=== PATIENT | male | born 2000 | race African-American/Black ===

== ENCOUNTER 2019-12-10 06:21 | Emergency (ER) | payer OTHER ==
[~2019-12-10] VITALS: Ht 165.1 cm; Wt 78.6 kg
[2019-12-10 06:22] VITALS: BP 132/81
[2019-12-10] MEDS ORDERED: TETRACAINE 0.5% OPHTH SOLN 4ML OU ONE (06:45)
[2019-12-10] MEDS ORDERED: FLUORESCEIN OPHTH 1 MG STRIP OU ONE (06:45)
[2019-12-10] MEDS ORDERED: PREDOPD OD (07:05)
== END 2019-12-10 07:13 | disposition home or self-care (01) ==
LOC: M ED 06:21
DX: H20.012 Primary iridocyclitis, left eye (principal)

== ENCOUNTER 2020-08-03 14:48 | Emergency (ER) | payer OTHER ==
[~2020-08-03] VITALS: Ht 165.1 cm; Wt 72.7 kg
[~2020-08-03 14:48] MED LIST: PREDOPD OD
[2020-08-03] MEDS ORDERED: TETRACAINE 0.5% OPHTH SOLN 4ML OU ONE (16:45)
[2020-08-03] MEDS ORDERED: FLUORESCEIN OPHTH 1 MG STRIP OU ONE (16:45)
[2020-08-03] MEDS ORDERED: OFLO3OPSO OU (17:03)
[2020-08-03] MEDS ORDERED: PREDOPD OU (17:03)
[2020-08-03] MEDS ORDERED: TRIA1CR80 TOP (17:31)
[2020-08-03 17:37] VITALS: BP 170/72
== END 2020-08-03 17:39 | disposition home or self-care (01) ==
LOC: M ED 14:48
DX: H10.33 Unspecified acute conjunctivitis, bilateral (principal); H20.9 Unspecified iridocyclitis

== ENCOUNTER 2020-08-26 11:34 | Emergency (ER) | payer OTHER ==
[~2020-08-26] VITALS: Ht 165.1 cm; Wt 73.8 kg
[~2020-08-26 11:34] MED LIST changes: +OFLO3OPSO OU; +PREDOPD OU; +TRIA1CR80 TOP
[2020-08-26] MEDS ORDERED: GNP1CRE5 TOP (12:47)
[2020-08-26 13:01] VITALS: BP 120/72
== END 2020-08-26 13:12 | disposition home or self-care (01) ==
LOC: M ED 11:34
DX: B36.0 Pityriasis versicolor (principal)

== ENCOUNTER 2021-05-10 10:28 | Emergency (ER) | payer OTHER ==
[~2021-05-10] VITALS: Ht 165.1 cm; Wt 72.1 kg
[~2021-05-10 10:28] MED LIST changes: +GNP1CRE5 TOP
[2021-05-10] MEDS ORDERED: PRED20TA PO (11:51)
[2021-05-10 12:06] VITALS: BP 130/80
== END 2021-05-10 12:09 | disposition home or self-care (01) ==
LOC: M ED 10:28
DX: T21.02XA Burn of unspecified degree of abdominal wall, initial encounter (principal); T31.0 Burns involving less than 10% of body surface; Y92.9 Unspecified place or not applicable; Y93.E8 Activity, other personal hygiene

== ENCOUNTER 2021-07-27 08:51 | Emergency (ER) | payer OTHER ==
[~2021-07-27] VITALS: Ht 165.1 cm; Wt 73.0 kg
[~2021-07-27 08:51] MED LIST changes: +PRED20TA PO
[2021-07-27] MEDS ORDERED: NS 1,000 ML IV ONE (09:35)
[2021-07-27] MEDS ORDERED: ONDANSETRON 4MG/2ML VIAL IV ONE (09:35)
[2021-07-27 10:06] LABS: BASO % 0.2 % (0.0-1.0); HEMATOCRIT 43.1 % (42.0-52.0); HEMOGLOBIN 15.2 g/dl (13.5-17.5); LYMPH # 1.3 10^3/uL (1.5-5.0); LYMPH % 24.8 % (24.0-44.0); MEAN CORPUSCULAR HEMOGLOBIN 32.9 pg (27.0-33.0); MEAN CORPUSCULAR HGB CONC 35.3 g/dl (32.0-36.5); MEAN CORPUSCULAR VOLUME 93.3 fl (80.0-96.0); MONO # 0.3 10^3/uL (0.0-0.8); MONO % 6.2 % (2.0-8.0); NEUTROPHILS # 3.6 10^3/uL (1.5-8.5); NEUTROPHILS % 68.4 % (36.0-66.0); PLATELET COUNT, AUTOMATED 242 10^3/uL (150-450); RED BLOOD COUNT 4.62 10^6/uL (4.30-6.10); WHITE BLOOD COUNT 5.2 10^3/uL (4.0-10.0)
[2021-07-27 10:52] LABS: ALBUMIN 4.2 GM/DL (3.2-5.2); ALT/SGPT 26 U/L (12-78); BILIRUBIN,DIRECT 0.2 MG/DL (0.0-0.2); BILIRUBIN,TOTAL 0.7 MG/DL (0.2-1.0); BLOOD UREA NITROGEN 9 MG/DL (7-18); CALCIUM LEVEL 8.7 MG/DL (8.5-10.1); CARBON DIOXIDE LEVEL 29 MEQ/L (21-32); CHLORIDE LEVEL 103 MEQ/L (98-107); CREATININE FOR GFR 1.05 MG/DL (0.70-1.30); GLOMERULAR FILTRATION RATE > 60.0 (>60); GLUCOSE, FASTING 94 MG/DL (70-100); LIPASE 96 U/L (73-393); POTASSIUM SERUM 4.2 MEQ/L (3.5-5.1); SODIUM LEVEL 136 MEQ/L (136-145); TOTAL PROTEIN 7.2 GM/DL (6.4-8.2)
[2021-07-27] MEDS ORDERED: ONDA4TAB6 PO (11:04)
[2021-07-27 11:18] VITALS: BP 132/85
== END 2021-07-27 11:31 | disposition home or self-care (01) ==
LOC: M ED 08:51
DX: R11.2 Nausea with vomiting, unspecified (principal)
CPT/HCPCS: 36415; 80048; 80076; 83690; 85025; 96361; 96374; 99284; J2405